=== PATIENT | female | born 1995 | race Caucasian/White ===

== ENCOUNTER → 2021-12-16 11:49 | Emergency (ER) | payer MEDICAID ==
[~2021-12-16 11:49] MED LIST: [UNRECOGNIZED DRUG - OTHER]
--- NOTE | 2021-12-16 11:49 | NUR ---
1cdiana pt in bathroom 2 call n/a in er lobby
--- NOTE | 2021-12-16 12:32 | NUR ---
LAST CALL IN LOBBY, NO ANSWER, PATIENT LEFT WITHOUT BEING SEEN BY DR. AZUL. NO FURTHER CARE PROVIDED FOR PATIENT.
== END | disposition left against medical advice (07) ==
LOC: MED 11:49
DX: Z53.21 Procedure and treatment not carried out due to patient leaving prior to being seen by health care provider (principal)

== ENCOUNTER 2021-12-19 05:45 | Emergency (ER) | payer MEDICAID ==
[~2021-12-19] VITALS: Ht 154.9 cm; Wt 63.5 kg
[2021-12-19 05:59] VITALS: BP 148/77
--- NOTE | 2021-12-19 06:04 | NUR ---
TO LOBBY FOLLOWING TRIAGE
[2021-12-19] MEDS ORDERED: PENICILLIN G BENZATHINE C-R 1.2 MU/2 ML SYR IM ONE (06:45)
--- NOTE | 2021-12-19 07:05 | NUR ---
Patient discharged with v/s stable. Written and verbal after care instructions given and explained. Patient verbalized understanding. Ambulatory with steady gait. All questions addressed prior to discharge. Advised to follow up with PMD.
== END 2021-12-19 07:05 | disposition home or self-care (01) ==
LOC: MED 05:45
DX: A52.8 Late syphilis, latent (principal); J45.909 Unspecified asthma, uncomplicated; Z79.899 Other long term (current) drug therapy; Z88.8 Allergy status to other drugs, medicaments and biological substances
CPT/HCPCS: 96372; 99283; J0558

== ENCOUNTER 2022-01-03 02:59 | Emergency (ER) | payer MEDICAID ==
--- NOTE | 2022-01-03 03:06 | NUR ---
PATIENT LEFT WITHOUT BEING SEEN BY DR. Coughlin. NO FURTHER CARE PROVIDED FOR PATIENT.
== END 2022-01-03 03:06 | disposition left against medical advice (07) ==
LOC: MED 02:59
DX: Z53.21 Procedure and treatment not carried out due to patient leaving prior to being seen by health care provider (principal)